=== PATIENT | female | born 1935 | race Caucasian/White ===

== ENCOUNTER 2022-03-08 11:24 | Inpatient (IN) ==
[2022-03-08 12:21] LABS: Basophils % 0.9 %; Eosinophils # 0.1 K/mcL (0.0-0.6); Eosinophils % 1.3 %; Immature Granulocytes % 0.2 % (0-4); Lymphocytes # 0.8 K/mcL (0.6-4.6); Lymphocytes % 17.9 %; Mean Corpuscular HGB Conc 31.8 g/dL (31.6-35.5); Mean Corpuscular Hemoglobin 29.2 pg (28.0-33.3); Mean Corpuscular Volume 91.9 fL (83.0-100.0); Mean Platelet Volume 10.5 fL (9.4-12.4); Monocytes # 0.5 K/mcL (0.0-1.3); Monocytes % 11.1 %; Neutrophils # 3.1 K/mcL (1.6-8.9); Platelet Count 152 K/mcL (140-400); Red Blood Count 4.79 M/mcL (3.82-4.97); Red Cell Distribution Width 15.9 % (11.5-14.5); Segmented Neutrophils % 68.6 %; White Blood Count 4.6 K/mcL (4.3-11.1)
[2022-03-08 12:33] LABS: Prothrombin Time 11.1 Seconds (9.4-12.1)
[2022-03-08 12:42] LABS: Calcium 9.2 mg/dL (8.6-10.3); Potassium 4.4 mEq/L (3.5-5.1)
[2022-03-08 12:43] LABS: Activated Partial Thrombo Time 29.5 Seconds (26.0-36.0)
[2022-03-08] MEDS ORDERED: DilTIAZem 50 MG/50 ML IV.SOLN IVC SCH (12:45)
[2022-03-08 12:52] LABS: Troponin I 0.05 ng/mL (< 0.04)
[2022-03-08] MEDS ORDERED: Ondansetron 4 MG/2 ML VIAL IVP PRN (14:20)
[2022-03-08] MEDS ORDERED: Naloxone 0.4 MG/ML INJ IVP PRN (14:20)
[2022-03-08] MEDS ORDERED: Metoprolol XL (24 HR) Succ 50 MG TAB.ER.24H PO ONE (14:23)
[2022-03-08] MEDS ORDERED: *HR* Heparin 5,000 UNIT/ML VIAL IVP PRN ×2 (15:58)
[2022-03-08] MEDS ORDERED: Perflutren Lipid Microsphere 1.3 ML in 0.9 % Sodium Chloride 8.7 ML IVP PRN (16:00)
[2022-03-08] MEDS: Heparin 25,000UNIT/250ML 1/2NS 25,000 UNIT/250 ML IV.SOLN IVC SCH (18:07)
[2022-03-08] MEDS: Furosemide 40 MG/4 ML VIAL IVP SCH (19:45)
[2022-03-08] MEDS: Ranolazine 500 MG TAB.ER.12H PO SCH (21:53)
[2022-03-08] MEDS ORDERED: *HR* Heparin 5,000 UNIT/ML VIAL SQ SCH (22:00)
[2022-03-09 01:35] LABS: Hematocrit 42.8 % (35.3-44.9); Hemoglobin 13.8 g/dL (11.5-15.4); Mean Corpuscular HGB Conc 32.2 g/dL (31.6-35.5); Mean Corpuscular Hemoglobin 29.5 pg (28.0-33.3); Mean Corpuscular Volume 91.5 fL (83.0-100.0); Mean Platelet Volume 10.2 fL (9.4-12.4); Platelet Count 143 K/mcL (140-400); Red Blood Count 4.68 M/mcL (3.82-4.97); Red Cell Distribution Width 16.2 % (11.5-14.5); White Blood Count 4.7 K/mcL (4.3-11.1)
[2022-03-09 01:56] LABS: Calcium 8.7 mg/dL (8.6-10.3); Magnesium 2.2 mg/dL (1.6-2.6)
[2022-03-09] MEDS: Magnesium Oxide 400 MG TABLET PO SCH (08:58)
[2022-03-09] MEDS: Aspirin Enteric Coated 81 MG Tablet PO SCH (08:58)
[2022-03-09] MEDS: Ranolazine 500 MG TAB.ER.12H PO SCH ×2 (08:58→21:39)
[2022-03-09] MEDS ORDERED: UBIDECARENONE 200 MG PO SCH (09:00)
[2022-03-09] MEDS: Metoprolol XL (24 HR) Succ 25 MG TAB.ER.24H PO SCH ×2 (09:01→21:40)
[2022-03-09] MEDS: Furosemide 40 MG/4 ML VIAL IVP SCH ×2 (11:35→18:20)
[2022-03-09] MEDS ORDERED: Metoprolol XL (24 HR) Succ 50 MG TAB.ER.24H PO ONE (14:23)
[2022-03-09] MEDS: *HR* OxyCODONE/APAP 5/325 TABLET PO PRN (18:20)
[2022-03-09] MEDS: *HR* Metoprolol 5 MG/5 ML VIAL IVP PRN (18:21)
[2022-03-10 01:03] LABS: Basophils # 0.1 K/mcL (0.0-0.2); Basophils % 1.1 %; Eosinophils # 0.2 K/mcL (0.0-0.6); Hematocrit 45.2 % (35.3-44.9); Hemoglobin 14.3 g/dL (11.5-15.4); Immature Granulocytes % 0.2 % (0-4); Lymphocytes # 1.4 K/mcL (0.6-4.6); Lymphocytes % 25.2 %; Mean Corpuscular HGB Conc 31.6 g/dL (31.6-35.5); Mean Corpuscular Hemoglobin 29.4 pg (28.0-33.3); Mean Corpuscular Volume 92.8 fL (83.0-100.0); Mean Platelet Volume 10.2 fL (9.4-12.4); Monocytes # 0.6 K/mcL (0.0-1.3); Monocytes % 10.5 %; Neutrophils # 3.2 K/mcL (1.6-8.9); Platelet Count 152 K/mcL (140-400); Red Blood Count 4.87 M/mcL (3.82-4.97); Red Cell Distribution Width 16.3 % (11.5-14.5); White Blood Count 5.4 K/mcL (4.3-11.1)
[2022-03-10 01:45] LABS: Calcium 8.8 mg/dL (8.6-10.3); Magnesium 2.1 mg/dL (1.6-2.6); Potassium 4.1 mEq/L (3.5-5.1)
[2022-03-10] MEDS: *HR* Metoprolol 5 MG/5 ML VIAL IVP PRN (02:40)
[2022-03-10] MEDS: Heparin 25,000UNIT/250ML 1/2NS 25,000 UNIT/250 ML IV.SOLN IVC SCH (05:42)
[2022-03-10] MEDS ORDERED: *HR* Metoprolol 5 MG/5 ML VIAL IVP ONE (08:02)
[2022-03-10] MEDS: Ranolazine 500 MG TAB.ER.12H PO SCH ×2 (08:15→21:01)
[2022-03-10] MEDS: Magnesium Oxide 400 MG TABLET PO SCH (08:17)
[2022-03-10] MEDS: Aspirin Enteric Coated 81 MG Tablet PO SCH (08:17)
[2022-03-10] MEDS: Furosemide 40 MG/4 ML VIAL IVP SCH ×2 (08:18→17:25)
[2022-03-10] MEDS: Metoprolol XL (24 HR) Succ 25 MG TAB.ER.24H PO SCH ×2 (09:04→21:04)
[2022-03-10] MEDS: *HR* OxyCODONE/APAP 5/325 TABLET PO PRN (18:28)
[2022-03-11 05:43] LABS: Basophils # 0.1 K/mcL (0.0-0.2); Basophils % 1.1 %; Eosinophils # 0.3 K/mcL (0.0-0.6); Eosinophils % 4.9 %; Hematocrit 39.4 % (35.3-44.9); Hemoglobin 12.9 g/dL (11.5-15.4); Immature Granulocytes % 0.2 % (0-4); Lymphocytes # 1.2 K/mcL (0.6-4.6); Lymphocytes % 22.3 %; Mean Corpuscular HGB Conc 32.7 g/dL (31.6-35.5); Mean Corpuscular Hemoglobin 29.9 pg (28.0-33.3); Mean Corpuscular Volume 91.2 fL (83.0-100.0); Mean Platelet Volume 10.5 fL (9.4-12.4); Monocytes # 0.7 K/mcL (0.0-1.3); Monocytes % 13.4 %; Neutrophils # 3.2 K/mcL (1.6-8.9); Platelet Count 155 K/mcL (140-400); Red Blood Count 4.32 M/mcL (3.82-4.97); Segmented Neutrophils % 58.1 %; White Blood Count 5.5 K/mcL (4.3-11.1)
[2022-03-11 06:03] LABS: Calcium 8.8 mg/dL (8.6-10.3)
[2022-03-11] MEDS: Heparin 25,000UNIT/250ML 1/2NS 25,000 UNIT/250 ML IV.SOLN IVC SCH ×2 (08:33→17:46)
[2022-03-11] MEDS: Aspirin Enteric Coated 81 MG Tablet PO SCH (08:34)
[2022-03-11] MEDS: Ranolazine 500 MG TAB.ER.12H PO SCH ×2 (08:34→20:31)
[2022-03-11] MEDS: Furosemide 40 MG/4 ML VIAL IVP SCH (08:35)
[2022-03-11] MEDS: Magnesium Oxide 400 MG TABLET PO SCH (08:35)
[2022-03-11] MEDS: Metoprolol XL (24 HR) Succ 25 MG TAB.ER.24H PO SCH ×2 (08:35→20:31)
[2022-03-11] MEDS ORDERED: Metoprolol XL (24 HR) Succ 25 MG TAB.ER.24H PO ONE (10:00)
[2022-03-11] MEDS: *HR* OxyCODONE/APAP 5/325 TABLET PO PRN ×2 (10:42→21:33)
[2022-03-11] MEDS: polyethylene glycoL 3350 17 GM POWD.PACK PO PRN (14:46)
[2022-03-11] MEDS: Isosorbide MONOnitrate (24 HR) 30 MG TAB.ER.24H PO SCH (14:46)
[2022-03-12 06:25] LABS: Hemoglobin 12.4 g/dL (11.5-15.4); Immature Granulocytes % 0.2 % (0-4); Mean Corpuscular HGB Conc 31.8 g/dL (31.6-35.5); Mean Corpuscular Hemoglobin 29.2 pg (28.0-33.3); Mean Corpuscular Volume 91.8 fL (83.0-100.0); Mean Platelet Volume 10.3 fL (9.4-12.4); Monocytes % 15.3 %; Platelet Count 135 K/mcL (140-400); Red Blood Count 4.25 M/mcL (3.82-4.97); Red Cell Distribution Width 16.6 % (11.5-14.5); Segmented Neutrophils % 59.1 %; White Blood Count 4.2 K/mcL (4.3-11.1)
[2022-03-12 06:26] LABS: Basophils # 0.1 K/mcL (0.0-0.2); Basophils % 1.2 %; Eosinophils # 0.2 K/mcL (0.0-0.6); Eosinophils % 4.2 %; Lymphocytes # 0.9 K/mcL (0.6-4.6); Monocytes # 0.7 K/mcL (0.0-1.3); Neutrophils # 2.5 K/mcL (1.6-8.9)
[2022-03-12 07:20] LABS: Calcium 8.8 mg/dL (8.6-10.3); Potassium 4.4 mEq/L (3.5-5.1)
[2022-03-12] MEDS: Metoprolol XL (24 HR) Succ 25 MG TAB.ER.24H PO SCH ×2 (07:45→20:29)
[2022-03-12] MEDS: Magnesium Oxide 400 MG TABLET PO SCH (07:45)
[2022-03-12] MEDS: Ranolazine 500 MG TAB.ER.12H PO SCH ×2 (07:45→20:29)
[2022-03-12] MEDS: Isosorbide MONOnitrate (24 HR) 30 MG TAB.ER.24H PO SCH (07:45)
[2022-03-12] MEDS: *HR* OxyCODONE/APAP 5/325 TABLET PO PRN ×2 (07:48→15:05)
[2022-03-12] MEDS ORDERED: Furosemide 20 MG/2 ML VIAL IVP ONE (08:49)
[2022-03-12] MEDS: polyethylene glycoL 3350 17 GM POWD.PACK PO PRN (11:46)
[2022-03-12] MEDS ORDERED: Metoprolol XL (24 HR) Succ 25 MG TAB.ER.24H PO ONE (14:00)
[2022-03-12] MEDS: Heparin 25,000UNIT/250ML 1/2NS 25,000 UNIT/250 ML IV.SOLN IVC SCH (22:06)
[2022-03-13] MEDS: *HR* OxyCODONE/APAP 5/325 TABLET PO PRN ×3 (03:24→21:46)
[2022-03-13 05:35] LABS: Basophils # 0.1 K/mcL (0.0-0.2); Basophils % 1.2 %; Eosinophils # 0.2 K/mcL (0.0-0.6); Eosinophils % 4.3 %; Hematocrit 40.7 % (35.3-44.9); Immature Granulocytes % 0.2 % (0-4); Lymphocytes # 0.7 K/mcL (0.6-4.6); Lymphocytes % 17.5 %; Mean Corpuscular HGB Conc 31.9 g/dL (31.6-35.5); Mean Corpuscular Hemoglobin 29.6 pg (28.0-33.3); Mean Corpuscular Volume 92.7 fL (83.0-100.0); Mean Platelet Volume 10.1 fL (9.4-12.4); Monocytes # 0.6 K/mcL (0.0-1.3); Monocytes % 13.7 %; Neutrophils # 2.6 K/mcL (1.6-8.9); Platelet Count 139 K/mcL (140-400); Red Blood Count 4.39 M/mcL (3.82-4.97); Red Cell Distribution Width 16.8 % (11.5-14.5); Segmented Neutrophils % 63.1 %; White Blood Count 4.2 K/mcL (4.3-11.1)
[2022-03-13] MEDS: Heparin 25,000UNIT/250ML 1/2NS 25,000 UNIT/250 ML IV.SOLN IVC SCH (05:47)
[2022-03-13 05:55] LABS: Calcium 9.2 mg/dL (8.6-10.3); Magnesium 2.1 mg/dL (1.6-2.6); Potassium 4.2 mEq/L (3.5-5.1)
[2022-03-13] MEDS: Ranolazine 500 MG TAB.ER.12H PO SCH ×2 (07:46→20:42)
[2022-03-13] MEDS: Magnesium Oxide 400 MG TABLET PO SCH (07:46)
[2022-03-13] MEDS: Isosorbide MONOnitrate (24 HR) 30 MG TAB.ER.24H PO SCH (07:46)
[2022-03-13] MEDS: Metoprolol XL (24 HR) Succ 25 MG TAB.ER.24H PO SCH ×2 (07:46→20:42)
[2022-03-13] MEDS: Furosemide 20 MG/2 ML VIAL IVP SCH ×2 (10:20→20:41)
[2022-03-13] MEDS: Sennosides 8.6 MG TABLET PO SCH (10:53)
[2022-03-13] MEDS: Saline Nasal Spray 44 ML BOTTLE NS SCH ×2 (17:58→20:46)
[2022-03-14] MEDS: Heparin 25,000UNIT/250ML 1/2NS 25,000 UNIT/250 ML IV.SOLN IVC SCH (07:36)
[2022-03-14] MEDS: Isosorbide MONOnitrate (24 HR) 30 MG TAB.ER.24H PO SCH (09:20)
[2022-03-14] MEDS: Metoprolol XL (24 HR) Succ 25 MG TAB.ER.24H PO SCH ×2 (09:20→20:28)
[2022-03-14] MEDS: Ranolazine 500 MG TAB.ER.12H PO SCH ×2 (09:20→20:28)
[2022-03-14] MEDS: Sennosides 8.6 MG TABLET PO SCH (09:21)
[2022-03-14] MEDS: Magnesium Oxide 400 MG TABLET PO SCH (09:21)
[2022-03-14] MEDS: Saline Nasal Spray 44 ML BOTTLE NS SCH ×2 (09:21→20:29)
[2022-03-14] MEDS: Furosemide 20 MG/2 ML VIAL IVP SCH ×2 (09:22→20:28)
[2022-03-14] MEDS: *HR* OxyCODONE/APAP 5/325 TABLET PO PRN ×2 (10:06→20:35)
[2022-03-14] MEDS ORDERED: polyethylene glycoL 3350 17 GM POWD.PACK PO ONE (13:41)
[2022-03-14] MEDS: polyethylene glycoL 3350 17 GM POWD.PACK PO PRN (16:37)
[2022-03-15] MEDS: Furosemide 20 MG/2 ML VIAL IVP SCH (07:27)
[2022-03-15] MEDS: Isosorbide MONOnitrate (24 HR) 30 MG TAB.ER.24H PO SCH (07:28)
[2022-03-15] MEDS: Metoprolol XL (24 HR) Succ 25 MG TAB.ER.24H PO SCH ×2 (07:28→20:01)
[2022-03-15] MEDS: *HR* OxyCODONE/APAP 5/325 TABLET PO PRN ×2 (07:28→20:02)
[2022-03-15] MEDS: Magnesium Oxide 400 MG TABLET PO SCH (07:28)
[2022-03-15] MEDS: Ranolazine 500 MG TAB.ER.12H PO SCH ×2 (07:28→20:02)
[2022-03-15] MEDS: Saline Nasal Spray 44 ML BOTTLE NS SCH ×2 (07:29→20:02)
[2022-03-15] MEDS ORDERED: Milk and Molasses Enema 200 ML RC ONE ×2 (07:58→17:00)
[2022-03-15] MEDS ORDERED: Furosemide 20 MG/2 ML VIAL IVP ONE (10:08)
[2022-03-15] MEDS ORDERED: Bisacodyl 10 MG RECTAL SUPPOSITORY RC ONE (13:33)
[2022-03-15] MEDS: Furosemide 40 MG/4 ML VIAL IVP SCH (20:02)
[2022-03-16 02:20] LABS: Calcium 9.3 mg/dL (8.6-10.3); Potassium 4.2 mEq/L (3.5-5.1)
[2022-03-16] MEDS: Magnesium Oxide 400 MG TABLET PO SCH (07:58)
[2022-03-16] MEDS: Isosorbide MONOnitrate (24 HR) 30 MG TAB.ER.24H PO SCH (07:58)
[2022-03-16] MEDS: Ranolazine 500 MG TAB.ER.12H PO SCH ×2 (07:58→21:20)
[2022-03-16] MEDS: Metoprolol XL (24 HR) Succ 25 MG TAB.ER.24H PO SCH (07:58)
[2022-03-16] MEDS: Saline Nasal Spray 44 ML BOTTLE NS SCH ×2 (07:59→21:23)
[2022-03-16] MEDS: Furosemide 40 MG/4 ML VIAL IVP SCH ×2 (07:59→21:23)
[2022-03-16] MEDS: *HR* OxyCODONE/APAP 5/325 TABLET PO PRN ×2 (08:14→21:21)
[2022-03-16] MEDS ORDERED: Metoprolol XL (24 HR) Succ 50 MG TAB.ER.24H PO ONE (10:09)
[2022-03-16] MEDS ORDERED: Metoprolol XL (24 HR) Succ 50 MG TAB.ER.24H PO SCH (21:00)
[2022-03-16] MEDS: Metoprolol XL (24 HR) Succ 50 MG TAB.ER.24H PO SCH (21:21)
[2022-03-17 02:58] LABS: Basophils % 0.9 %; Eosinophils # 0.1 K/mcL (0.0-0.6); Eosinophils % 2.9 %; Hematocrit 43.6 % (35.3-44.9); Hemoglobin 14.1 g/dL (11.5-15.4); Immature Granulocytes % 0.4 % (0-4); Lymphocytes # 0.8 K/mcL (0.6-4.6); Lymphocytes % 16.6 %; Mean Corpuscular HGB Conc 32.3 g/dL (31.6-35.5); Mean Corpuscular Hemoglobin 29.2 pg (28.0-33.3); Mean Corpuscular Volume 90.3 fL (83.0-100.0); Mean Platelet Volume 10.4 fL (9.4-12.4); Monocytes # 0.7 K/mcL (0.0-1.3); Monocytes % 14.6 %; Neutrophils # 2.9 K/mcL (1.6-8.9); Platelet Count 162 K/mcL (140-400); Red Blood Count 4.83 M/mcL (3.82-4.97); Red Cell Distribution Width 16.4 % (11.5-14.5); Segmented Neutrophils % 64.6 %; White Blood Count 4.5 K/mcL (4.3-11.1)
[2022-03-17 03:25] LABS: Calcium 8.8 mg/dL (8.6-10.3)
[2022-03-17] MEDS ORDERED: polyethylene glycoL 3350 17 GM POWD.PACK PO PRN (07:54)
[2022-03-17] MEDS: Magnesium Oxide 400 MG TABLET PO SCH (07:59)
[2022-03-17] MEDS: Isosorbide MONOnitrate (24 HR) 30 MG TAB.ER.24H PO SCH (07:59)
[2022-03-17] MEDS: Ranolazine 500 MG TAB.ER.12H PO SCH ×2 (07:59→21:10)
[2022-03-17] MEDS: Metoprolol XL (24 HR) Succ 50 MG TAB.ER.24H PO SCH ×2 (07:59→21:08)
[2022-03-17] MEDS: Furosemide 40 MG/4 ML VIAL IVP SCH ×2 (07:59→21:10)
[2022-03-17] MEDS: Saline Nasal Spray 44 ML BOTTLE NS SCH ×2 (08:00→21:11)
[2022-03-17] MEDS: *HR* OxyCODONE/APAP 5/325 TABLET PO PRN ×2 (08:08→18:19)
[2022-03-17] MEDS: polyethylene glycoL 3350 17 GM POWD.PACK PO SCH (21:11)
[2022-03-18] MEDS: *HR* OxyCODONE/APAP 5/325 TABLET PO PRN ×3 (00:53→23:41)
[2022-03-18] MEDS: Furosemide 40 MG/4 ML VIAL IVP SCH ×2 (07:38→21:41)
[2022-03-18] MEDS: Isosorbide MONOnitrate (24 HR) 30 MG TAB.ER.24H PO SCH (07:39)
[2022-03-18] MEDS: Ranolazine 500 MG TAB.ER.12H PO SCH ×2 (07:39→21:38)
[2022-03-18] MEDS: Metoprolol XL (24 HR) Succ 50 MG TAB.ER.24H PO SCH ×2 (07:39→21:37)
[2022-03-18] MEDS: Magnesium Oxide 400 MG TABLET PO SCH (07:39)
[2022-03-18] MEDS: Saline Nasal Spray 44 ML BOTTLE NS SCH ×2 (07:40→21:42)
[2022-03-18 08:37] LABS: Calcium 8.5 mg/dL (8.6-10.3); Potassium 3.9 mEq/L (3.5-5.1)
[2022-03-18] MEDS ORDERED: *HR* Digoxin 0.5 MG/2 ML AMPUL IVP ONE ×3 (09:24→21:00)
[2022-03-18] MEDS: polyethylene glycoL 3350 17 GM POWD.PACK PO SCH ×2 (09:55→21:39)
[2022-03-18] MEDS ORDERED: Furosemide 40 MG/4 ML VIAL IVP ONE (17:20)
[2022-03-19 03:18] LABS: Calcium 8.3 mg/dL (8.6-10.3); Potassium 3.5 mEq/L (3.5-5.1)
[2022-03-19] MEDS: polyethylene glycoL 3350 17 GM POWD.PACK PO SCH ×2 (09:19→21:28)
[2022-03-19] MEDS: Ranolazine 500 MG TAB.ER.12H PO SCH ×2 (09:19→21:26)
[2022-03-19] MEDS: Isosorbide MONOnitrate (24 HR) 30 MG TAB.ER.24H PO SCH (09:19)
[2022-03-19] MEDS: Furosemide 40 MG/4 ML VIAL IVP SCH ×2 (09:19→21:28)
[2022-03-19] MEDS: Metoprolol XL (24 HR) Succ 50 MG TAB.ER.24H PO SCH ×2 (09:19→21:26)
[2022-03-19] MEDS: Magnesium Oxide 400 MG TABLET PO SCH (09:19)
[2022-03-19] MEDS: Saline Nasal Spray 44 ML BOTTLE NS SCH ×2 (09:20→21:28)
[2022-03-19] MEDS: *HR* OxyCODONE/APAP 5/325 TABLET PO PRN ×2 (11:52→21:25)
[2022-03-20 03:05] LABS: Calcium 8.4 mg/dL (8.6-10.3)
[2022-03-20] MEDS: polyethylene glycoL 3350 17 GM POWD.PACK PO SCH ×2 (07:11→21:01)
[2022-03-20] MEDS: Furosemide 40 MG/4 ML VIAL IVP SCH ×2 (09:28→21:01)
[2022-03-20] MEDS: Magnesium Oxide 400 MG TABLET PO SCH (09:29)
[2022-03-20] MEDS: Isosorbide MONOnitrate (24 HR) 30 MG TAB.ER.24H PO SCH (09:30)
[2022-03-20] MEDS: *HR* Digoxin 0.125 MG TABLET PO SCH (09:30)
[2022-03-20] MEDS: Ranolazine 500 MG TAB.ER.12H PO SCH ×2 (09:30→20:59)
[2022-03-20] MEDS: Metoprolol XL (24 HR) Succ 50 MG TAB.ER.24H PO SCH ×2 (09:31→21:00)
[2022-03-20] MEDS: Saline Nasal Spray 44 ML BOTTLE NS SCH ×2 (09:31→21:01)
[2022-03-20 13:09] LABS: Adenovirus Not Detected (Not Detect); Bordetella Pertussis Not Detected (Not Detect); Chlamydophila pneumoniae Not Detected (Not Detect); Coronavirus 229E Not Detected (Not Detect); Coronavirus HKU1 Not Detected (Not Detect); Coronavirus NL63 Not Detected (Not Detect); Coronavirus OC43 Not Detected (Not Detect); Human Metapneumovirus Not Detected (Not Detect); Human Rhinovirus/Enterovirus Not Detected (Not Detect); Influenza A Subtype 2009 H1 Not Detected (Not Detect); Influenza B Not Detected (Not Detect); Mycoplasma pneumoniae Not Detected (Not Detect); Parainfluenza Virus 1 Not Detected (Not Detect); Parainfluenza Virus 2 Not Detected (Not Detect); Parainfluenza Virus 3 Not Detected (Not Detect); Parainfluenza Virus 4 Not Detected (Not Detect); Respiratory Syncytial Virus Not Detected (Not Detect); SARS-CoV-2 Not Detected (Not Detect)
[2022-03-20] MEDS: *HR* OxyCODONE/APAP 5/325 TABLET PO PRN ×2 (14:46→20:59)
[2022-03-21 02:11] LABS: Basophils % 0.5 %; Eosinophils # 0.2 K/mcL (0.0-0.6); Eosinophils % 2.2 %; Hemoglobin 13.8 g/dL (11.5-15.4); Immature Granulocytes % 0.3 % (0-4); Lymphocytes # 0.7 K/mcL (0.6-4.6); Lymphocytes % 9.2 %; Mean Corpuscular HGB Conc 32.9 g/dL (31.6-35.5); Mean Corpuscular Hemoglobin 29.2 pg (28.0-33.3); Mean Corpuscular Volume 88.8 fL (83.0-100.0); Mean Platelet Volume 9.9 fL (9.4-12.4); Monocytes # 1.1 K/mcL (0.0-1.3); Monocytes % 14.3 %; Neutrophils # 5.6 K/mcL (1.6-8.9); Platelet Count 171 K/mcL (140-400); Red Blood Count 4.73 M/mcL (3.82-4.97); Red Cell Distribution Width 15.9 % (11.5-14.5); Segmented Neutrophils % 73.5 %
[2022-03-21 02:24] LABS: White Blood Count 7.6 K/mcL (4.3-11.1)
[2022-03-21 02:27] LABS: Calcium 8.2 mg/dL (8.6-10.3); Magnesium 1.9 mg/dL (1.6-2.6); Potassium 3.5 mEq/L (3.5-5.1)
[2022-03-21 02:53] LABS: Thyroid Stimulating Hormone 1.3 mcIU/mL (0.340-5.600)
[2022-03-21] MEDS: *HR* Digoxin 0.125 MG TABLET PO SCH (07:58)
[2022-03-21] MEDS: Metoprolol XL (24 HR) Succ 50 MG TAB.ER.24H PO SCH (08:00)
[2022-03-21] MEDS: *HR* OxyCODONE/APAP 5/325 TABLET PO PRN (08:01)
[2022-03-21] MEDS: Magnesium Oxide 400 MG TABLET PO SCH (08:01)
[2022-03-21] MEDS: Saline Nasal Spray 44 ML BOTTLE NS SCH (08:02)
[2022-03-21] MEDS: Isosorbide MONOnitrate (24 HR) 30 MG TAB.ER.24H PO SCH (08:02)
[2022-03-21] MEDS: polyethylene glycoL 3350 17 GM POWD.PACK PO SCH (08:02)
[2022-03-21] MEDS: Ranolazine 500 MG TAB.ER.12H PO SCH (08:02)
[2022-03-21] MEDS ORDERED: Lactobacillus 1 EACH CAP.SPRINK PO SCH (09:00)
[2022-03-21] MEDS ORDERED: Cholecalciferol (D-3) 1,000 UNIT (25MCG) TABLET PO SCH (09:00)
[2022-03-21] MEDS ORDERED: Torsemide 20 MG TABLET PO SCH ×2 (09:00)
[2022-03-21 14:25] LABS: Adenovirus Not Detected (Not Detect); Bordetella Pertussis Not Detected (Not Detect); Chlamydophila pneumoniae Not Detected (Not Detect); Coronavirus 229E Not Detected (Not Detect); Coronavirus HKU1 Not Detected (Not Detect); Coronavirus NL63 Not Detected (Not Detect); Coronavirus OC43 Not Detected (Not Detect); Human Metapneumovirus Not Detected (Not Detect); Human Rhinovirus/Enterovirus Not Detected (Not Detect); Influenza A Subtype 2009 H1 Not Detected (Not Detect); Influenza B Not Detected (Not Detect); Mycoplasma pneumoniae Not Detected (Not Detect); Parainfluenza Virus 1 Not Detected (Not Detect); Parainfluenza Virus 2 Not Detected (Not Detect); Parainfluenza Virus 3 Not Detected (Not Detect); Parainfluenza Virus 4 Not Detected (Not Detect); Respiratory Syncytial Virus Not Detected (Not Detect); SARS-CoV-2 Not Detected (Not Detect)
[2022-03-21 17:01] VITALS: BP 124/74; PULSE 83; TEMP 98.4; O2SAT 90
[2022-03-22] MEDS ORDERED: Spironolactone 25 MG TABLET PO SCH (07:21)
== END 2022-03-21 19:25 | DRG 280 ==
LOC: EMEROOARM 11:24 → 2ANU 11:24 → OBSVTOIN 16:47 → SUATTDRO 16:47 → 2ANU 17:14
PROVIDERS: ADMIT Family Medicine; ATTEND Pharmacist